=== PATIENT | female | born 1950 | race Caucasian/White ===

== ENCOUNTER 2016-06-28 09:56 | Day surgery (SDC) | payer MEDICARE ==
[~2016-06-28 09:56] MED LIST: Acetaminophen TAB* 325 MG PO PRN; Buffered Lidocaine 1% SYRIN* 3 ML/SYR SYRINGE INTRADERM ONE; Cyclopentolate 1% OPTH.SOL* 2 ML BTL ONE; Flurbiprofen 0.03% OPTH.SOL* 2.5 ML BTL ONE; Lidocaine 1% MPF* 2 ML VIAL ONE; Neomycin/Polymy/Dex OPHTH.OIN* 3.5 GM ONE; Phenylephrine 2.5% OPTH.SOL* 2 ML BTL ONE; Tetracaine 0.5% OPTH.SOL 4 ML* 1 DROP BTL ONE; Tropicamide 1% OPTH.SOL* BTL ONE
[2016-06-28] MEDS ORDERED: fentaNYL* 50 MCG/ML 2 ML VIAL (100 MCG VIAL) ONE (11:07)
[2016-06-28] MEDS ORDERED: Midazolam* 1 MG/ML 2 ML VIAL (2 MG) ONE ×2 (11:08→11:43)
[2016-06-28 12:12] VITALS: BP 147/76
--- NOTE | 2016-06-28 23:30 | OP ---
DATE OF OPERATION: 06/28/16 - [facility] [facility] DATE OF : 46 SURGEON: Jerson Mae MD DOUBLE END TENON OPERATOR: None. ANESTHESIOLOGIST: David Joseph MD ANESTHESIA: Topical with intravenous sedation. PRE-OP DIAGNOSIS: Cataract, right eye with astigmatism. POST-OP DIAGNOSIS: Cataract, right eye with astigmatism. OPERATIVE PROCEDURE: Phacoemulsification and cataract extraction with posterior chamber toric intraocular lens implant, right eye. COMPLICATIONS: None. BLOOD LOSS: None. DESCRIPTION OF PROCEDURE: The patient was seen preoperatively in the holding area, where she was placed in an upright position. A barbara was made at the 6 o' clock position near the limbus of the right eye. The patient was subsequently brought to the operating room, where she was given a small amount of intravenous sedation and a drop of tetracaine in the right eye. The patient was prepped and draped in the usual sterile fashion for ophthalmic surgery and attention was directed to the right eye, where a speculum was placed. A paracentesis was created at the 11 o'clock position and 0.1 cc of 1% preservative-free lidocaine was injected into the anterior chamber followed by DisCoVisc. The eye was digitally stabilized while a 2.75-mm keratome was used to create a triplanar clear corneal incision at the 9 o'clock position. A continuous curvilinear capsulorrhexis was created with a cystotome and Utrata forceps. BSS on a cannula was used to hydrodissect the lens from the capsule. Phacoemulsification was performed in a [id number] technique to create 4 fragments, which were removed. Residual cortical material was removed with irrigation and aspiration. Healon was used to inflate the capsular bag. An [id number] 17 diopter lens was folded. A Funes marker was used to barbara the 79- degree axis on the cornea. The lens was then introduced into the eye through the main wound. A Sinskey hook was used to dial the lens to the appropriate axial alignment. The Sinskey hook remained in the eye with the paracentesis to stabilize the lens while irrigation and aspiration was performed to remove viscoelastic from the eye. The Sinskey hook was removed. BSS on a cannula was used to hydrate the the corneal stroma and seal the wound. At the end of the case, the pupil was round. The lens was centered, stable, and axially aligned. The eye pressure appeared normal and the wound was watertight. The speculum was removed and topical Maxitrol ointment was placed on the surface of the eye. Eye was closed, patched, and shielded and the patient was sent to recovery room in stable condition with postoperative instructions and a followup appointment given. [id number]/CPS #: [id number] MINESH
== END 2016-06-28 12:24 | disposition home or self-care (01) ==
LOC: OREAST 09:56
PROVIDERS: ATTEND Ophthalmology
DX: H25.11 Age-related nuclear cataract, right eye (principal); H52.209 Unspecified astigmatism, unspecified eye; I10 Essential (primary) hypertension; Z87.891 Personal history of nicotine dependence
CPT/HCPCS: J2250; J3010; V2787

== ENCOUNTER 2016-07-05 07:24 | Day surgery (SDC) | payer MEDICARE ==
[~2016-07-05 07:24] MED LIST changes: -Cyclopentolate 1% OPTH.SOL* 2 ML BTL ONE; -Flurbiprofen 0.03% OPTH.SOL* 2.5 ML BTL ONE; -Lidocaine 1% MPF* 2 ML VIAL ONE; -Neomycin/Polymy/Dex OPHTH.OIN* 3.5 GM ONE; -Phenylephrine 2.5% OPTH.SOL* 2 ML BTL ONE; -Tetracaine 0.5% OPTH.SOL 4 ML* 1 DROP BTL ONE; -Tropicamide 1% OPTH.SOL* BTL ONE
[2016-07-05] MEDS ORDERED: Midazolam* 1 MG/ML 2 ML VIAL (2 MG) ONE ×2 (08:43→08:46)
[2016-07-05 09:17] VITALS: BP 157/87
[2016-07-05] MEDS ORDERED: Neomycin/Polymy/Dex OPHTH.OIN* 3.5 GM ONE (13:23)
[2016-07-05] MEDS ORDERED: Phenylephrine 2.5% OPTH.SOL* 2 ML BTL ONE (13:23)
[2016-07-05] MEDS ORDERED: Lidocaine 1% MPF* 2 ML VIAL ONE (13:23)
[2016-07-05] MEDS ORDERED: Flurbiprofen 0.03% OPTH.SOL* 2.5 ML BTL ONE (13:23)
[2016-07-05] MEDS ORDERED: Tropicamide 1% OPTH.SOL* BTL ONE (13:23)
[2016-07-05] MEDS ORDERED: Cyclopentolate 1% OPTH.SOL* 2 ML BTL ONE (13:23)
[2016-07-05] MEDS ORDERED: Tetracaine 0.5% OPTH.SOL 4 ML* 1 DROP BTL ONE (13:23)
--- NOTE | 2016-07-05 21:28 | OP ---
DATE OF OPERATION: 07/05/16 - [place] [facility] DATE OF : 46 SURGEON: Jerson Mae MD DRILL PUNCH OPERATOR: None. ANESTHESIOLOGIST: Caroline Appiah MD ANESTHESIA: Topical with intravenous sedation. PRE-OP DIAGNOSIS: Cataract with astigmatism, left eye. POST-OP DIAGNOSIS: Cataract with astigmatism, left eye. OPERATIVE PROCEDURE: Phacoemulsification and cataract extraction with posterior chamber intraocular toric lens implant, left eye. COMPLICATIONS: None. ESTIMATED BLOOD LOSS: None. DESCRIPTION OF PROCEDURE: The patient was seen preoperatively in the holding area, where she was placed in an upright position. A barbara was made at the 6 o' clock position of the limbus of the left eye. She was subsequently brought to the operating room and given a small amount of intravenous sedation. A drop of tetracaine was placed in the left eye. The patient was prepped and draped in the usual sterile fashion for ophthalmic surgery and attention was directed to the left eye, where a speculum was placed. A paracentesis was created at the 5 o'clock position. 0.1 cc of 1% preservative-free lidocaine was injected into the anterior chamber followed by DisCoVisc. The eye was digitally stabilized while a 2.75-mm keratome was used to create a triplanar clear corneal incision at the 3 o'clock position. A continuous curvilinear capsulorrhexis was created with a cystotome and Utrata forceps. BSS on a cannula was used to hydrodissect the lens from the capsule. Phacoemulsification was performed in a divide-and- conquer technique to create 4 fragments, which were removed. Residual cortical material was removed with irrigation and aspiration. Healon was used to inflate the capsular bag. A Funes marker was used to barbara the 95-degree axis _ ____ limbus. An SN6AT3 18.0 diopter lens was folded and inserted into the capsular bag. A Sinskey hook was used to dial the lens to the appropriate axial alignment, 95 degrees. The Sinskey hook remained in the eye with the paracentesis to stabilize the lens while irrigation and aspiration was performed to remove viscoelastic from the eye. The Sinskey hook was removed. BSS on a cannula was used to hydrate the corneal stroma and to seal the wound. At the end of the case, the pupil was round. The lens was centered, stable, and axially aligned. The eye pressure was normal and wound was watertight. The speculum was removed and topical Maxitrol ointment was placed on the surface of the eye. The eye was closed, patched, and shielded, and the patient was sent to recovery room in stable condition with postop instructions and a followup appointment given. [id number]/CPS #: [id number] MTDD
== END 2016-07-05 09:28 | disposition home or self-care (01) ==
LOC: OREAST 07:24
PROVIDERS: ATTEND Ophthalmology
DX: H25.12 Age-related nuclear cataract, left eye (principal); H52.202 Unspecified astigmatism, left eye; I10 Essential (primary) hypertension; Z87.891 Personal history of nicotine dependence
CPT/HCPCS: A9270-GY; J2250; V2787

== ENCOUNTER 2017-05-16 07:30 | Inpatient (IN) | payer MEDICARE ==
--- NOTE | 2017-05-03 20:59 | HP ---
HISTORY AND PHYSICAL: DATE OF SURGERY/ADMISSION: 05/16/17 DATE OF OFFICE VISIT: 05/03/17 SURGEON: Yahaira Martinez MD * (DICTATED BY NOE VAZQUEZ) PROCEDURE: Right total knee arthroplasty. CHIEF COMPLAINT: Right knee pain. HISTORY OF PRESENT ILLNESS: Ms. Patel is a 67-year-old female with continued complaints of right knee pain secondary to end-stage osteoarthritis. She has failed conservative management and elected to proceed with a right total knee arthroplasty, which is scheduled for 05/16/[address] Martinez. PAST MEDICAL HISTORY: Hypertension, sarcoidosis, history of Lyme disease, and one episode of unexplained rectal bleeding in the requiring 3 units of blood. PAST SURGICAL HISTORY: Cataract removal and lymph node biopsy. CURRENT MEDICATIONS: 1. Amlodipine/benazepril 10/20 mg daily. 2. Fish oil 1000 mg daily. 3. Vitamin D3 2000 units daily. 4. Activella 0.5/0.1 mg daily. 5. Xiidra 5% both eyes daily. 6. Metronidazole 0.75% twice daily. ALLERGIES: PENICILLIN and SULFA. FAMILY HISTORY: Stroke, coronary artery disease, Alzheimer's, AFib, and AML. SOCIAL HISTORY: She is a 67-year-old female. She lives with her . She is a retired rural mail contractor. She is a former smoker. Does not use drugs. Uses occasional alcohol. REVIEW OF SYSTEMS: A complete 14-point review of systems was reviewed with the patient. She denies any history of DVT, PE, hepatitis C, HIV, or anesthesia problems. She has some mild asthma. PHYSICAL EXAMINATION GENERAL: She is well developed, well nourished, in no acute distress. VITAL SIGNS: She stands 5 feet 7 inches tall, weighs 226 pounds. Her blood pressure is 138/88, her heart rate is 88. HEENT: Normocephalic, atraumatic. NECK: Supple. No palpable lymph nodes. PULMONARY: The lungs are clear to auscultation bilaterally. CARDIO: Regular rate and rhythm. Strong S1, S2. ABDOMEN: Soft, nontender, nondistended. MUSCULOSKELETAL: Right lower extremity, the skin is intact. There are no open wounds or abrasions. She has some moderate effusion of the right knee. Some tenderness over the lateral joint line. 5 to 125 degrees of flexion. There is a 15-degree valgus deformity with an incompetent MCL. 2+ dorsalis pedis pulses. Intact sensation in her lower extremity. Muscle group strengths are intact at 5/5. NEUROLOGIC: Alert and oriented x3. Cranial nerves II through XII are intact. ASSESSMENT AND PLAN: Ms. Patel is a 67-year-old female with complaints of right knee pain secondary to end-stage osteoarthritis. She has failed conservative management and elected to proceed with a right total knee arthroplasty, which is scheduled for 05/16/[address] Martinez discussed the risks and benefits of the surgery at today's visit and all of her questions were answered. She will follow up with Dr. Martinez in 2 weeks after the surgery. NOE VAZQUEZ [id number]/CPS #: [id number] MTDD
[~2017-05-16 07:30] MED LIST changes: -Acetaminophen TAB* 325 MG PO PRN; +Buffered Lidocaine 0.9% SYRIN* 5 ML/SYR SYRINGE INTRADERM ONE; -Buffered Lidocaine 1% SYRIN* 3 ML/SYR SYRINGE INTRADERM ONE; +Famotidine IV* 10 MG/ML 2 ML (20 mg) IV ONE
[2017-05-16] MEDS ORDERED: Famotidine IV* 10 MG/ML 2 ML (20 mg) ONE (08:50)
[2017-05-16] MEDS ORDERED: Clindamycin 900 MG IVPREMIX(* 900 MG/50 ML SDV IV ONE (08:50)
[2017-05-16] MEDS ORDERED: Buffered Lidocaine 0.9% SYRIN* 5 ML/SYR SYRINGE ONE (08:50)
[2017-05-16] MEDS ORDERED: Gabapentin CAP(*) 300 MG PO ONE (09:13)
[2017-05-16] MEDS ORDERED: fentaNYL* 50 MCG/ML 2 ML VIAL (100 MCG VIAL) ONE (09:34)
[2017-05-16] MEDS ORDERED: Midazolam* 1 MG/ML 5 ML VIAL (5 MG) ONE (09:35)
[2017-05-16] MEDS ORDERED: Morphine PF AMP (0.5MG/ML)* 5 MG/10 ML AMP ONE (09:35)
[2017-05-16] MEDS ORDERED: Bupivacaine-MPF SPINAL* 7.5 MG/2 ML AMP ONE (09:56)
[2017-05-16] MEDS ORDERED: Dexamethasone IV* 4 MG/ML 1 ML (4 MG) ONE ×2 (10:55→12:21)
[2017-05-16] MEDS ORDERED: Propofol* 10 MG/ML 20 ML BTL IV PUSH ONE ×2 (10:55→12:38)
[2017-05-16] MEDS ORDERED: Ketorolac INJ* 30 MG/ML 1 ML VIAL ONE ×2 (10:55→12:21)
[2017-05-16] MEDS ORDERED: Ondansetron INJ* 2 MG/ML VIAL ONE ×2 (10:55→12:21)
[2017-05-16] MEDS ORDERED: DiMENhydriNATE IV* 50 MG/ML VIAL IV PUSH PRN (11:00)
[2017-05-16] MEDS ORDERED: HYDROmorphone INJ* 1 MG/ML CARPUJECT SYRINGE IV PRN (11:00)
[2017-05-16] MEDS ORDERED: Naloxone* 0.4 MG/ML 1 ML VIAL IV PRN (11:00)
[2017-05-16] MEDS ORDERED: oxyCODONE TAB* 5 MG TAB PO PRN (11:00)
[2017-05-16] MEDS ORDERED: Acetaminophen TAB* 325 MG PO PRN ×2 (11:00→11:16)
[2017-05-16] MEDS ORDERED: Gabapentin CAP(*) 100 MG PO ONE (11:01)
[2017-05-16] MEDS ORDERED: KETAMINE HCL* 50 MG/ML 10 ML VIAL ONE (11:03)
[2017-05-16] MEDS ORDERED: Magnesium Hydroxide LIQ* 30 ML UDC PO PRN (11:16)
[2017-05-16] MEDS ORDERED: Cyclobenzaprine TAB* 10 MG PO PRN (11:16)
[2017-05-16] MEDS ORDERED: Bisacodyl SUPP* 10 MG SUPP PR PRN (11:16)
[2017-05-16] MEDS ORDERED: Polyethylene Glycol 3350* 17 GM PACKET PO PRN (11:16)
[2017-05-16] MEDS ORDERED: Midazolam* 1 MG/ML 2 ML VIAL (2 MG) ONE (11:49)
[2017-05-16] MEDS ORDERED: Labetalol IV* 5 MG/ML 20 ML VIAL ONE (11:58)
[2017-05-16] MEDS ORDERED: Glycopyrrolate IV* 0.2 MG/ML 1 ML VIAL ONE (12:04)
[2017-05-16] MEDS ORDERED: EPHEDrine (Pressors)* 50 MG/ML VIAL IV PUSH PRN (12:25)
[2017-05-16] MEDS ORDERED: Nalbuphine* 20 MG/ML 1 ML VIAL IV PRN (12:25)
[2017-05-16] MEDS ORDERED: Ropivacaine (OR use only) 2 MG/ML 1 ML ONE (12:40)
[2017-05-16] MEDS ORDERED: Ropivacaine* 300 MG in NS 0.9% 250 ML* 240 ML EPIDURAL SCH (13:00)
[2017-05-16] MEDS ORDERED: Gabapentin CAP(*) 100 MG ONE (13:28)
[2017-05-16] MEDS ORDERED: Gabapentin CAP(*) 300 MG ONE (14:12)
--- NOTE | 2017-05-16 15:47 | RAD ---
Indication: Right total knee replacement. 2 views of the right knee demonstrates bipolar knee replacement in satisfactory position. Drainage catheter is in place. IMPRESSION: Right knee replacement in satisfactory position.
[2017-05-16] MEDS ORDERED: Albuterol 2.5 MG/3 ML NEB.SOL* (0.083%) INH PRN (15:51)
[2017-05-16] MEDS ORDERED: Warfarin TAB(*) 6 MG PO ONE (17:00)
[2017-05-16] MEDS: Ibuprofen TAB* 400 MG PO SCH (19:16)
[2017-05-16] MEDS: Clindamycin 600 MG IVPREMIX(* 600 MG/50 ML SDV IV SCH (20:24)
[2017-05-16] MEDS: Docusate CAP* 100 MG PO SCH (20:43)
[2017-05-16] MEDS: Magnesium Hydroxide LIQ* 30 ML UDC PO SCH (20:43)
--- NOTE | 2017-05-16 22:30 | CONS ---
CC: Dr. Lopez; Dr. Martinez* CONSULTATION REPORT: DATE OF CONSULTATION: 05/16/17 PRIMARY CARE PROVIDER: Dr. Lopez. ATTENDING PHYSICIAN WHILE IN THE HOSPITAL: Ruben Grossman MD (report is being dictated by Phill Hansen NP) REASON FOR MEDICAL CONSULTATION: Evaluation and medical management of comorbid medical conditions. HISTORY OF PRESENT ILLNESS: I will refer you to Dr. Martinez's H and P for further details. In short, Mrs. Patel is a 67-year-old female patient who has been dealing with right knee pain for sometime. She says that she tried conservative management; these were failing. She sought care with Dr. Martinez and it was felt that she would benefit from a total knee replacement, which she underwent today. She does carry a history of sarcoidosis in the past, Lyme disease, history of seasonal asthma, and history of hypertension. Because of the medical complexity, we were asked to evaluate in consult. She was evaluated in the PACU. She said she is not having any chest pain, shortness of breath. She does not feel lightheaded or dizzy. She denies having any nausea, vomiting and she states that she otherwise is feeling well. Her pain is well controlled. She has no numbness or tingling to her right lower extremity. Again, because of her medical complexity, we were asked to evaluate in consult. PAST MEDICAL HISTORY: Significant for: 1. Hypertension. 2. Sarcoidosis. 3. Lyme disease. 4. Asthma. PAST SURGICAL HISTORY: 1. She has had lymph node biopsy. 2. Cataract extraction. 3. Today, she has had a right total knee replacement. HOME MEDICATIONS: Include: 1. Lotrel 10/20 mg 1 capsule p.o. daily. 2. Refresh P.M. 1 application topical left eye q.p.m. 3. Fish oil 1000 mg daily. 4. Metronidazole cream 1 application topically in the morning. 5. Xiidra 1 drop both eyes b.i.d. 6. Estradiol/norethindrone 1 tablet in the morning. 7. Vitamin D 1000 units p.o. q.a.m. ALLERGIES TO MEDICATIONS: Include PENICILLIN and SULFA drugs. FAMILY HISTORY: Mother had a history of dementia. Father had a history of CVA and CHF. SOCIAL HISTORY: She does not smoke. She does drink 1 to 2 glasses of wine at dinner. Surrogate decision maker is her , Reinier. REVIEW OF SYSTEMS: There is no documented fever. She denied having any significant weight change. There was no double vision. She denies having any ear discharge. There has been no rhinorrhea. No sore throat. No thyroid enlargement. Denied having any chest pain. There was no orthopnea. There is no nocturnal dyspnea. She denied having any abdominal pain. There is no nausea , no vomiting. No dysuria. No frequency. There was no seizure. No loss of consciousness. No pruritus and no skin ulcerations. Review of 14 systems completed, all others negative. PHYSICAL EXAMINATION: Vital Signs: Blood pressure 109/76, pulse 71, respirations 16, O2 sat 99% on 3 L, temperature 98.2. Generally, at this time, Mrs. Patel is a 67- year-old female patient. She appears to be well nourished, well developed. She does not appear to be in any acute distress. HEENT: Head : Head atraumatic, normocephalic. Eyes: EOMs are intact. Sclerae anicteric and not pale. Neck: Supple. Throat: Oral mucosa appears to be moist. No oropharyngeal erythema. Heart: Sounds S1, S2. Regular rate and rhythm. No murmurs, rubs, or gallops. Lungs: Clear to auscultation. No wheezes, rales, or rhonchi. Abdomen: Soft, it was flat. Bowel sounds hypoactive. Extremities : Pulses were 2+ throughout. Distal CSM checks are intact to the right lower extremity. Neurologically, she is awake, alert, oriented x3. No gross focal deficits. Skin is intact with the exception she has a Hemovac and dressing noticed on the left knee, which is clean, dry, and intact. LABORATORY DATA/DIAGNOSTIC STUDIES: Labs preop, WBC of 8.5, RBC of 4.31, hemoglobin 13.5, hematocrit of 40, platelet count of 291. INR was 0.79. Sodium was 137, potassium was 4.3, chloride 102, bicarb 28, BUN 15, creatinine 0.97, glucose 91. AST 14, ALT 11. Urine preop negative. She did have EKG outpatient, which showed a normal sinus rhythm. No gross ST elevations or T wave inversions, it is difficult to examine because it is photocopied. Chest x- ray showed no active cardiopulmonary disease. Old medical records were reviewed. ASSESSMENT AND PLAN: Mrs. Patel is a 67-year-old female patient coming in to the orthopedic services today for an elective total knee replacement. We were asked to evaluate in consult. Recommendations at this point are: 1. Status post right total knee. I will defer the management to Dr. Martinez and her team. 2. Hypotension. In the setting of her having an epidural, we will hold her meds and restart when able. 3. Sarcoidosis. Follow with her primary. 4. History of Lyme disease. Not an active issue. 5. History of asthma. I will order p.r.n. albuterol for the patient should she have any wheezing. 6. DVT prophylaxis. Defer to the primary team. 7. Code status. Full code. 8. Fluids, electrolytes, and nutrition. I would recommend a heart healthy diet. TIME SPENT: Time spent on consult 60 minutes, greater than half that time was spent [id number] with the patient obtaining my history and physical, the other half time was spent going over the plan of care with the patient, implementing the plan of care. I did discuss the plan of care with my attending, Dr. Grossman, he is in agreement. PHILL HANSEN NP [id number]/CPS #: [id number] MINESH
[2017-05-17] MEDS: Ibuprofen TAB* 400 MG PO SCH ×2 (02:26→07:32)
[2017-05-17] MEDS: Clindamycin 600 MG IVPREMIX(* 600 MG/50 ML SDV IV SCH ×2 (04:24→12:00)
[2017-05-17] MEDS: oxyCODONE/Acetamin 5/325 MG* TAB PO PRN ×3 (05:14→18:08)
[2017-05-17 05:28] LABS: Hematocrit 32 % (35-47); Hemoglobin 10.8 g/dl (12.0-16.0); Mean Platelet Volume 8 um3 (7.4-10.4); Platelet Count 215 10^3/ul (150-450)
[2017-05-17 05:44] LABS: EGFR Non-African American 74.3 (>60)
[2017-05-17] MEDS ORDERED: diPHENhydraMINE IV* 50 MG/ML 1 ml VIAL (BENADRYL) IV PRN (06:00)
[2017-05-17] MEDS ORDERED: Morphine INJ* 2 MG/ML 1 ML CARPUJECT IV PRN (06:00)
[2017-05-17] MEDS ORDERED: oxyCODONE TAB* 5 MG TAB PO PRN (06:00)
[2017-05-17] MEDS ORDERED: Ondansetron TAB* 4 MG PO PRN (06:00)
[2017-05-17] MEDS ORDERED: oxyCODONE/Acetamin 5/325 MG* TAB PO PRN (06:00)
[2017-05-17] MEDS: Magnesium Hydroxide LIQ* 30 ML UDC PO SCH ×2 (08:26→19:55)
[2017-05-17] MEDS: Docusate CAP* 100 MG PO SCH ×2 (08:26→19:55)
[2017-05-17] MEDS ORDERED: amLODIPine/Benazepril 10/20(NF) CAP PO SCH (09:00)
[2017-05-17] MEDS: XIIDRA 5% BOTH EYES SCH ×2 (09:56→19:54)
[2017-05-17] MEDS: EYE BOTH EYES SCH ×2 (09:56→19:54)
[2017-05-17] MEDS: Ondansetron INJ* 2 MG/ML VIAL IV PRN ×2 (10:02→18:09)
--- NOTE | 2017-05-17 11:35 | PN ---
Progress Note - Progress Note Date of Service: 05/17/17 SOAP: Subjective: []Patient seen at bedside. She feels well and denies right knee pain, dizziness , nausea, chest pain or shortness of breath. Objective: [] Vital Signs Temp 98.0 F 05/17/17 07:28 Pulse 66 05/17/17 07:28 Resp 18 05/17/17 08:26 BP 115/56 05/17/17 07:28 Pulse Ox 98 05/17/17 08:00 Intake & Output 05/16/17 05/17/17 05/17/17 18:59 06:59 18:59 Intake Total 1875 2533 225 Output Total 150 1175 Balance 1725 1358 225 Weight 229 lb 6.4 oz Intake: IV Fluids 1700 1033 ABX - CLINDAMYCIN 53 LR 1700 980 Oral 175 1500 225 Output: [place] 150 1175 Other: # Bowel Movements 0 Laboratory Last Values Hgb 10.8 g/dl (12.0-16.0) L 05/17/17 05:11 Hct 32 % (35-47) L 05/17/17 05:11 Plt Count 215 10^3/ul (150-450) 05/17/17 05:11 MPV 8 um3 (7.4-10.4) 05/17/17 05:11 Sodium 130 mmol/L (133-145) L 05/17/17 05:11 Potassium 4.4 mmol/L (3.5-5.0) 05/17/17 07:25 Chloride 101 mmol/L (101-111) 05/17/17 05:11 Carbon Dioxide 24 mmol/L (22-32) 05/17/17 05:11 Anion Gap 5 mmol/L (2-11) 05/17/17 05:11 BUN 14 mg/dL (6-24) 05/17/17 05:11 Creatinine 0.77 mg/dL (0.51-0.95) 05/17/17 05:11 Est GFR ( Amer) 95.6 (>60) 05/17/17 05:11 Est GFR (Non-Af Amer) 74.3 (>60) 05/17/17 05:11 BUN/Creatinine Ratio 18.2 (8-20) 05/17/17 05:11 Glucose 147 mg/dL (70-100) H 05/17/17 05:11 Calcium 8.6 mg/dL (8.6-10.3) 05/17/17 05:11 General: Well appearing, NAD Right LE: Drain removed with tip intact and without complication. Dressing CDI. DF/PF intact. 2+ dp/Pt. Sensation intact distally. BL LE: Calves supple and nontender without erythema, edema or palpable cords Assessment: []POD 1 sp right total knee replacement 05/16/17 Dr Martinez Plan: []PT/OT WBAT Lovenox in house, Aspirin outpatient
[2017-05-17] MEDS: NORETHINDRONE PO SCH (11:59)
[2017-05-17] MEDS: ESTRADIOL 0.5 MG PO SCH (11:59)
[2017-05-17] MEDS: Enoxaparin(*) 30 MG/0.3 ML SYR SUBCUT SCH (12:01)
--- NOTE | 2017-05-17 12:50 | PN ---
Subjective Date of Service: 05/17/17 Interval History: Patient states that her pain is significantly increased after they removed her epidural catheter yesterday. Patient had difficulty working with PT today. Patient denies pain anywhere besides her knee. Patient feels slightly lightheaded on standing but attributes this to the pain. Patient states that she had her millard catheter removed at 0500 and has not urinated yet but does not feel like she needs to. Patient has passed gas but has not had a BM. Patient states that she has a history of prolonged bleeding and a family history of serious bleeding. Patient denies CP, SOB, F/C, abdominal pain, dysuria, or other pain. Family History: Findings - Patient's father had an internal hemorhage. Social History: Unchanged from Admission Past Medical History: Unchanged from Admission Objective Active Medications: Acetaminophen (Tylenol Tab*) 650 mg PO Q4H PRN PRN Reason: PAIN OR TEMPERATURE Albuterol (Ventolin 2.5 Mg/3 Ml Neb.Aniya*) 2.5 mg INH Q2H PRN PRN Reason: SOB/WHEEZING Bisacodyl (Dulcolax Supp*) 10 mg MT DAILY PRN PRN Reason: constipation Cyclobenzaprine HCl (Flexeril Tab*) 10 mg PO TID PRN PRN Reason: SPASMS Diphenhydramine HCl (Benadryl Iv*) 12.5 mg IV Q6H PRN PRN Reason: PRURITIS Docusate Sodium (Colace Cap*) 100 mg PO BID [facility] Last Admin: 05/17/17 08:26 Dose: 100 mg Enoxaparin Sodium (Lovenox(*)) 30 mg SUBCUT Q24H [facility] Last Admin: 05/17/17 12:01 Dose: 30 mg Lactated Ringer's (Lactated Ringers 1000 Ml Bag*) 1,000 mls @ 100 mls/hr IV PER RATE [facility] Last Admin: 05/17/17 02:25 Dose: 100 mls/hr Lactulose (Lactulose*) 30 ml PO Q6H PRN PRN Reason: constipation Magnesium Hydroxide (Milk Of Magnesia Liq*) 30 ml PO BID [facility] Last Admin: 05/17/17 08:26 Dose: 30 ml Magnesium Hydroxide (Milk Of Magnesia Liq*) 30 ml PO Q6H PRN PRN Reason: constipation Morphine Sulfate (Morphine Inj (Syringe)*) 2 mg IV Q2H PRN PRN Reason: PAIN Pto: Estradiol 0.5 Mg-Norethindrone 0.1 Mg Tab 1 dose PO DAILY [facility] Last Admin: 05/17/17 11:59 Dose: 1 dose Xiidra (Lifitegrast) (5% Eye Drops Ud) 1 dose BOTH EYES BID [facility] Last Admin: 05/17/17 09:56 Dose: 1 dose Soothe Lubricant Eye (Ointment) 1 dose LEFT EYE QPM [facility] Ondansetron HCl (Zofran Inj*) 4 mg IV Q6H PRN PRN Reason: nausea Last Admin: 05/17/17 10:02 Dose: 4 mg Ondansetron HCl (Zofran Tab*) 4 mg PO Q6H PRN PRN Reason: NAUSEA Oxycodone HCl (Roxycodone Tab*) 5 mg PO ONCE PRN PRN Reason: PAIN - MODERATE Stop: 05/17/17 17:00 Oxycodone HCl (Roxycodone Tab*) 10 mg PO Q4H PRN PRN Reason: SEVERE PAIN Last Admin: 05/17/17 08:26 Dose: 10 mg Oxycodone/Acetaminophen (Percocet 5/325 Tab*) 2 tab PO Q4H PRN PRN Reason: PAIN Last Admin: 05/17/17 12:32 Dose: 2 tab Oxycodone/Acetaminophen (Percocet 5/325 Tab*) 1 tab PO Q4H PRN PRN Reason: PAIN Polyethylene Glycol/Electrolytes (Miralax*) 17 gm PO DAILY PRN PRN Reason: Constipation Vital Signs - 8 hr 05/17/17 05/17/17 05/17/17 05:14 07:27 07:28 Temperature 98.0 F Pulse Rate 66 Respiratory 20 18 17 Rate Blood Pressure 115/56 (mmHg) O2 Sat by Pulse 98 Oximetry 05/17/17 05/17/17 05/17/17 08:00 08:26 11:57 Temperature Pulse Rate Respiratory 18 18 18 Rate Blood Pressure (mmHg) O2 Sat by Pulse 98 Oximetry 05/17/17 12:32 Temperature Pulse Rate Respiratory 18 Rate Blood Pressure (mmHg) O2 Sat by Pulse Oximetry Oxygen Devices in Use Now: None Appearance: Patient is a 67yo female who appears stated age and is sitting in the bed in NAD. Eyes: No Scleral Icterus, PERRLA Ears/Nose/Mouth/Throat: NL Teeth, Lips, Gums, Clear Oropharnyx, Mucous Membranes Moist Neck: NL Appearance and Movements; NL JVP, Trachea Midline Respiratory: Symmetrical Chest Expansion and Respiratory Effort, Clear to Auscultation Cardiovascular: NL Sounds; No Murmurs; No JVD, RRR, No Edema Abdominal: NL Sounds; No Tenderness; No Distention, No Hepatosplenomegaly Lymphatic: No Cervical Adenopathy Extremities: No Edema, No Clubbing, Cyanosis Skin: No Nodules or Sclerosis, - - Right knee surgical incision covered by bulky dressing and gauze. Drain site non-bleeding but with large amount of blood on gauze. Neurological: Alert and Oriented x 3, NL Sensation, NL Muscle Strength and Tone , - - CN II-XII intact. Result Diagrams: 05/17/17 05:11 05/17/17 07:25 Assess/Plan/Problems-Billing Assessment: Patient is a 67yo female with a PMH for HTN, Asthma, Sarcoidosis, and bleeding who is S/P RTHA and is doing well. - Patient Problems (1) Status post total right knee replacement Current Visit: Yes Status: Acute Code(s): Z96.651 - PRESENCE OF RIGHT ARTIFICIAL KNEE JOINT SNOMED Code(s): 1836445161577 Comment: Patient is POD #1. Patient has had significantly increased pain after the removal of her epidural catheter but this is trending down now. Patient complains of Nausea with opiate administration. Patient has not urinated yet and is passing flatus but has not had a BM. Management per primary team. (2) HTN (hypertension) Current Visit: Yes Status: Acute Code(s): I10 - ESSENTIAL (PRIMARY) HYPERTENSION SNOMED Code(s): 13739205 Comment: Normotensive. Continue to hold BP medications. Will reintroduce as indicated. (3) Sarcoidosis Current Visit: Yes Status: Acute Code(s): D86.9 - SARCOIDOSIS, UNSPECIFIED SNOMED Code(s): 24874818 Comment: Not on medications. No current rash, SOB, fevers, or other signs of disease flare. (4) Bleeding disorder Current Visit: Yes Status: Acute Code(s): D69.9 - HEMORRHAGIC CONDITION, UNSPECIFIED SNOMED Code(s): 70920451 Comment: Patient has a history of difficult to control bleeding. Patient also has a family history of serious bleeding. Never had a hemophilia workup. Will not fully anticoagulate and would recommend hemophilia testing outpatient when further removed from surgery. (5) Asthma Current Visit: Yes Status: Acute Code(s): J45.909 - UNSPECIFIED ASTHMA, UNCOMPLICATED SNOMED Code(s): 646353317 Comment: No exacerbation, on no medications. (6) DVT prophylaxis Current Visit: Yes Status: Acute Code(s): DFB9961 - SNOMED Code(s): 085738823 Comment: Lovenox in the hospital and then ASA. Will not fully anticoagulate due to history of difficult to control bleeding. (7) Full code status Current Visit: Yes Status: Acute Code(s): Z78.9 - OTHER SPECIFIED HEALTH STATUS SNOMED Code(s): 625335210 Status and Disposition: Disposition per ortho.
[2017-05-17] MEDS ORDERED: [UNRECOGNIZED DRUG - OTHER] LEFT EYE SCH (18:00)
[2017-05-17] MEDS: PROCHLORPERAZINE INJ 5 MG/ML 2 ML VIAL IV PRN (23:16)
--- NOTE | 2017-05-17 23:19 | OP ---
DATE OF OPERATION: 05/16/17 - ROOM #348 DATE OF : 46 SURGEON: Yahaira Martinez MD UNEMPLOYMENT INSPECTOR: NOE Arevalo. Ms. Diaz did help throughout the procedure with preparations of the leg, wound retraction, manipulation of the knee and wound closure. ANESTHESIOLOGIST: Dr. Orozco. ANESTHESIA: Spinal. PRE-OP DIAGNOSES: Severe end-stage osteoarthritis of the right knee joint, valgus deformity. POST-OP DIAGNOSES: Severe end-stage osteoarthritis of the right knee joint, valgus deformity. OPERATIVE PROCEDURE: Right total knee arthroplasty. TOURNIQUET TIME: 47 minutes. COMPLICATIONS: None. SPECIMEN: Bone and cartilage from the right knee joint sent to pathology. HARDWARE USED: This is [employer] cemented total knee arthroplasty hardware. Two packages of Simplex bone cement. For the femur, a size 5, right narrow Legion posterior stabilized femoral component. For the tibia, size 3 right, tibial base plate Vanita II. For the insert, a 13-mm constrained articular insert size 3-4 and for the patella, a 32-mm 3-peg all poly patella. BRIEF HISTORY/INDICATION: Ms. Patel is a 67-year-old female with years of increasingly severe right knee pain and valgus deformity. She did injure the knee in the past and had an MCL partial tear. Over the years, she tried anti- inflammatories, pain medications, brace wear and physical therapy without relief of pain. Radiograph showed severe end-stage arthritis with [id number] contact. Due to continued pain and decreased quality of life, the patient elected to undergo right total knee arthroplasty. Informed consent was obtained from the patient. She understood the risk of surgery included, but not limited to bleeding, infection, damage to nearby structures, continued pain , need for further surgery, intraoperative fracture, nerve palsy, hardware failure or loosening, knee stiffness, loss of motion, stroke, heart attack, blood clot and . She wished to proceed. INTRAOPERATIVE FINDINGS: Intraoperatively, the patient was noted to have 15- degree valgus deformity preop, which was corrected to anatomic alignment. She had MCL laxity, but there was some remaining fibers of the MCL. She had lateral femoral condylar hypoplasia noted. There was tricompartmental loss of cartilage. DESCRIPTION OF PROCEDURE: Ms. Patel was identified in the preanesthesia unit. Her right lower extremity was marked as the correct operative side. Informed consent was signed and placed in the chart. The patient was taken to the operating room and placed under spinal anesthesia without difficulty. A De León catheter was placed. Tourniquet was placed on the right thigh. Right lower extremity was prepped and draped in the usual sterile fashion. Preop time-out was made to correctly identify the patient's side and site. Appropriate perioperative antibiotics were given within 1 hour of incision. Tourniquet was inflated and total tourniquet time for this procedure was 47 minutes. A midline incision was made with a 10 blade and carried down to the extensor mechanism. A new 10 blade was used to make a standard medial parapatellar arthrotomy. The patella was subluxed laterally. Electrocautery was used to subperiosteally elevate soft tissue off the medial tibia to the mid sagittal plane. The knee was flexed up. The anterior horn of the lateral meniscus and ACL were released. A drill was used to enter the distal femur. Intramedullary distal femoral cutting guide was pinned on the distal femur. Lateral femoral condylar hypoplasia was noted and accounted for. Oscillating saw was used to make the distal femoral cut. Next, the external rotation guide was turned on the distal femur pinned on the distal femur. The distal femur was sized to size 5. A size 5 multi-cutting jig was pinned on the distal femur. Oscillating saw was used to make the appropriate 4 chamfer cuts. The PCL was completely released. The tibia was subluxed anteriorly. Extramedullary tibial cutting guide was pinned on the proximal tibia. The oscillating saw was used to make the proximal tibial bone cut. The bone was carefully removed. The knee was brought out into full extension. The spacer block had good fit. There was MCL laxity, but medial lateral ligament balancing and spacing was appropriate. Flexion and extension gaps were well balanced. The knee was flexed up. Lamina personnel generalist manager was placed both medially and laterally and any remaining meniscus was removed using electrocautery. Any posterior osteophytes were removed with a curved osteotome. Tibial tray and drop shailesh were placed on the tibia and confirmed satisfactory proximal tibial cut. A size 5 narrow, right femoral component trial was impacted onto the distal femur and had good fit. The box for the posterior stabilized implant was prepared using a reamer and box cut osteotome. A size 3 tibial tray trial with an 11-mm insert trial was placed and the knee was taken through a range of motion. There was full extension to 130 degrees of flexion with good patellofemoral tracking. The patella was everted. 9 mm of patellar bone and cartilage was carefully removed using an oscillating saw. The patella was sized to size 32. The 3 peg holes were drilled through the size 32 guide. A 32 trial patella was placed and the knee was taken through range of motion. There was satisfactory patellofemoral tracking. All trials were carefully removed. The tibia was subluxed anteriorly and sized to a size 3. Proximal tibia was prepared using a size 3 keel punch. All bony cut surfaces were copiously irrigated with sterile saline and dried. Final implants were cemented into place starting with the tibia followed by the femur and last the patella. A 13-mm insert trial was placed and the knee was brought out into full extension. The tourniquet was turned down at 47 minutes. Electrocautery was used to obtain meticulous hemostasis. The knee was copiously irrigated with sterile saline. Once the cement had fully cured, the insert trial was removed. Any excess cement was removed from around the capsule and implant. Final insert chosen was a 13-mm size 3-4 constrained articular insert. This was locked into position on the tibial tray. Stability of the insert was checked and rechecked and noted to be stable. The knee was copiously irrigated once again. Extensor mechanism was closed using interrupted #1 Vicryl over a medium Hemovac drain. The rest of the incisions were closed in layered fashion using 0 and 2-0 Vicryl. The skin was closed using running 3-0 nylon suture. Sterile Xeroform, 4x4s and Webril were used to cover the incision. Guillermo wrap and cold pack were placed over this. The patient's anesthesia was reversed without difficulty. She was taken to the PACU in stable condition. Intended weight-earing will be weightbearing as tolerated. Intended DVT prophylaxis will be Lovenox, home on aspirin. [id number]/[facility] #: [id number] [facility]
[2017-05-18 05:46] LABS: Hematocrit 34 % (35-47); Hemoglobin 11.4 g/dl (12.0-16.0); Mean Platelet Volume 9 um3 (7.4-10.4); Platelet Count 241 10^3/ul (150-450)
[2017-05-18] MEDS: PROCHLORPERAZINE INJ 5 MG/ML 2 ML VIAL IV PRN (08:11)
[2017-05-18] MEDS: Magnesium Hydroxide LIQ* 30 ML UDC PO SCH (08:30)
[2017-05-18] MEDS: Docusate CAP* 100 MG PO SCH (08:30)
[2017-05-18] MEDS: NORETHINDRONE PO SCH (09:38)
[2017-05-18] MEDS: ESTRADIOL 0.5 MG PO SCH (09:38)
[2017-05-18] MEDS: XIIDRA 5% BOTH EYES SCH (09:39)
[2017-05-18] MEDS: EYE BOTH EYES SCH (09:39)
[2017-05-18] MEDS ORDERED: amLODIPine TAB* 5 MG PO SCH (11:00)
--- NOTE | 2017-05-18 11:15 | PN ---
Subjective Date of Service: 05/18/17 Interval History: Patient was significantly nauseated overnight which responded to compazine. Patient had several bowel movements and urinated. Patient had 2 episodes of hematuria but states that that is decreasing in amount and only occurred after her catheterization overnight for urinary retention which is now also resolved. Patient states that she has minor pain in her leg at rest but that it increases up to a 9/10 with activity but that she was still able to participate in PT and walk up stairs. Patient denies lightheadedness on standing today, which was present yesterday. Patient denies F/C, N/V, abdominal pain, CP, SOB, or other pain. Family History: Findings - Patient's father had an internal hemorhage. Social History: Unchanged from Admission Past Medical History: Unchanged from Admission Objective Active Medications: Acetaminophen (Tylenol Tab*) 650 mg PO Q4H PRN PRN Reason: PAIN OR TEMPERATURE Last Admin: 05/18/17 08:29 Dose: 650 mg Albuterol (Ventolin 2.5 Mg/3 Ml Neb.Aniya*) 2.5 mg INH Q2H PRN PRN Reason: SOB/WHEEZING Amlodipine Besylate (Norvasc Tab*) 10 mg PO DAILY EMELIA Bisacodyl (Dulcolax Supp*) 10 mg VA DAILY PRN PRN Reason: constipation Cyclobenzaprine HCl (Flexeril Tab*) 10 mg PO TID PRN PRN Reason: SPASMS Diphenhydramine HCl (Benadryl Iv*) 12.5 mg IV Q6H PRN PRN Reason: PRURITIS Docusate Sodium (Colace Cap*) 100 mg PO BID [facility] Last Admin: 05/18/17 08:30 Dose: Not Given Enoxaparin Sodium (Lovenox(*)) 30 mg SUBCUT Q24H [facility] Last Admin: 05/17/17 12:01 Dose: 30 mg Lactated Ringer's (Lactated Ringers 1000 Ml Bag*) 1,000 mls @ 100 mls/hr IV PER RATE [facility] Last Admin: 05/18/17 02:15 Dose: 100 mls/hr Lactulose (Lactulose*) 30 ml PO Q6H PRN PRN Reason: constipation Magnesium Hydroxide (Milk Of Magnesia Liq*) 30 ml PO BID [facility] Last Admin: 05/18/17 08:30 Dose: Not Given Magnesium Hydroxide (Milk Of Magnesia Liq*) 30 ml PO Q6H PRN PRN Reason: constipation Morphine Sulfate (Morphine Inj (Syringe)*) 2 mg IV Q2H PRN PRN Reason: PAIN Pto: Estradiol 0.5 Mg-Norethindrone 0.1 Mg Tab 1 dose PO DAILY [facility] Last Admin: 05/18/17 09:38 Dose: 1 dose Xiidra (Lifitegrast) (5% Eye Drops Ud) 1 dose BOTH EYES BID [facility] Last Admin: 05/18/17 09:39 Dose: 1 dose Soothe Lubricant Eye (Ointment) 1 dose LEFT EYE QPM [facility] Last Admin: 05/17/17 19:53 Dose: 1 dose Ondansetron HCl (Zofran Inj*) 4 mg IV Q6H PRN PRN Reason: nausea Last Admin: 05/17/17 18:09 Dose: 4 mg Ondansetron HCl (Zofran Tab*) 4 mg PO Q6H PRN PRN Reason: NAUSEA Last Admin: 05/17/17 22:10 Dose: 4 mg Oxycodone HCl (Roxycodone Tab*) 10 mg PO Q4H PRN PRN Reason: SEVERE PAIN Last Admin: 05/17/17 08:26 Dose: 10 mg Oxycodone/Acetaminophen (Percocet 5/325 Tab*) 2 tab PO Q4H PRN PRN Reason: PAIN Last Admin: 05/17/17 18:08 Dose: 2 tab Oxycodone/Acetaminophen (Percocet 5/325 Tab*) 1 tab PO Q4H PRN PRN Reason: PAIN Last Admin: 05/18/17 08:29 Dose: 1 tab Polyethylene Glycol/Electrolytes (Miralax*) 17 gm PO DAILY PRN PRN Reason: Constipation Prochlorperazine Edisylate (Compazine Inj*) 10 mg IV Q6H PRN PRN Reason: NAUSEA Last Admin: 05/18/17 08:11 Dose: 10 mg Vital Signs - 8 hr 05/18/17 05/18/17 05/18/17 04:13 07:39 08:00 Temperature 98.9 F 98.9 F Pulse Rate 77 79 Respiratory 16 16 18 Rate Blood Pressure 159/70 143/91 (mmHg) O2 Sat by Pulse 98 93 93 Oximetry 05/18/17 08:29 Temperature Pulse Rate Respiratory 18 Rate Blood Pressure (mmHg) O2 Sat by Pulse Oximetry Oxygen Devices in Use Now: None Appearance: Patient is a 67yo female who appears stated age and is sitting in the bed in NAD. Eyes: No Scleral Icterus, PERRLA Ears/Nose/Mouth/Throat: NL Teeth, Lips, Gums, Clear Oropharnyx, Mucous Membranes Moist Neck: NL Appearance and Movements; NL JVP, Trachea Midline Respiratory: Symmetrical Chest Expansion and Respiratory Effort, Clear to Auscultation Cardiovascular: NL Sounds; No Murmurs; No JVD, RRR, - - 1+ edema in RLE. Abdominal: NL Sounds; No Tenderness; No Distention Lymphatic: No Cervical Adenopathy Extremities: No Clubbing, Cyanosis Skin: No Nodules or Sclerosis, - - Right knee covered with bulky dressing. Neurological: Alert and Oriented x 3, NL Sensation, NL Muscle Strength and Tone , - - CN II-XII intact. Result Diagrams: 05/18/17 04:49 05/18/17 04:49 Assess/Plan/Problems-Billing Assessment: Patient is a 67yo female with a PMH for HTN, Asthma, Sarcoidosis, and bleeding who is S/P RTHA and is doing well. - Patient Problems (1) Status post total right knee replacement Current Visit: Yes Status: Acute Code(s): Z96.651 - PRESENCE OF RIGHT ARTIFICIAL KNEE JOINT SNOMED Code(s): 7904850932577 Comment: Patient is POD #2. Patient has decreased pain today which is tolerable. Patient complains of Nausea with opiate administration which resolved with compazine overnight. Patient is now urinating and having bowel movements independantly. Management per primary team. (2) HTN (hypertension) Current Visit: Yes Status: Acute Code(s): I10 - ESSENTIAL (PRIMARY) HYPERTENSION SNOMED Code(s): 44672193 Comment: Slightly hypertensive. Amlodopine restarted. Resume home medications on discharge. (3) Sarcoidosis Current Visit: Yes Status: Acute Code(s): D86.9 - SARCOIDOSIS, UNSPECIFIED SNOMED Code(s): 38731883 Comment: Not on medications. No current rash, SOB, fevers, or other signs of disease flare. (4) Bleeding disorder Current Visit: Yes Status: Acute Code(s): D69.9 - HEMORRHAGIC CONDITION, UNSPECIFIED SNOMED Code(s): 21285803 Comment: Patient has a history of difficult to control bleeding. Patient also has a family history of serious bleeding. Never had a hemophilia workup. Will not fully anticoagulate and would recommend hemophilia testing outpatient when further removed from surgery. Likely contributing to hematuria with slight trauma. (5) Asthma Current Visit: Yes Status: Acute Code(s): J45.909 - UNSPECIFIED ASTHMA, UNCOMPLICATED SNOMED Code(s): 856601927 Comment: No exacerbation, on no medications. (6) DVT prophylaxis Current Visit: Yes Status: Acute Code(s): FER0343 - SNOMED Code(s): 596032333 Comment: Lovenox in the hospital and then ASA. Will not fully anticoagulate due to history of difficult to control bleeding. (7) Full code status Current Visit: Yes Status: Acute Code(s): Z78.9 - OTHER SPECIFIED HEALTH STATUS SNOMED Code(s): 673652825 Status and Disposition: Inpatient, Disposition per ortho.
[2017-05-18] MEDS: Enoxaparin(*) 30 MG/0.3 ML SYR SUBCUT SCH (11:25)
--- NOTE | 2017-05-18 12:16 | PN ---
Progress Note - Progress Note Date of Service: 05/18/17 SOAP: Subjective: []Patient seen at bedside. She feels well and desires discharge home. Denies dizziness, nausea, CP or SOB. Objective: []General: Well appearing, NAD Right LE: Dressing changed, incision CDI. DF/PF intact. 2+ dp/Pt. Sensation intact distally. BL LE: Calves supple and nontender without erythema, edema or palpable cords Vital Signs Temp 98.9 F 05/18/17 11:30 Pulse 76 05/18/17 11:30 Resp 16 05/18/17 11:30 BP 169/50 05/18/17 11:30 Pulse Ox 94 05/18/17 11:30 Intake & Output 05/17/17 05/18/17 05/18/17 18:59 06:59 18:59 Intake Total 2962 1403 714 Output Total 125 4400 900 Balance 2837 -2997 -186 Intake: IV Fluids 1087 983 714 ABX - CLINDAMYCIN 107 LR 980 983 714 Oral 1875 420 Output: Urine 125 2975 900 Straight Cath 400 Emesis 1025 Other: Date of Last Bowel 05/18/17 Movement # Bowel Movements 1 Estimated Stool Amount Small Laboratory Last Values Hgb 11.4 g/dl (12.0-16.0) L 05/18/17 04:49 Hct 34 % (35-47) L 05/18/17 04:49 Plt Count 241 10^3/ul (150-450) 05/18/17 04:49 MPV 9 um3 (7.4-10.4) 05/18/17 04:49 Sodium 132 mmol/L (133-145) L 05/18/17 04:49 Potassium 4.4 mmol/L (3.5-5.0) 05/17/17 07:25 Chloride 101 mmol/L (101-111) 05/17/17 05:11 Carbon Dioxide 24 mmol/L (22-32) 05/17/17 05:11 Anion Gap 5 mmol/L (2-11) 05/17/17 05:11 BUN 14 mg/dL (6-24) 05/17/17 05:11 Creatinine 0.77 mg/dL (0.51-0.95) 05/17/17 05:11 Est GFR ( Amer) 95.6 (>60) 05/17/17 05:11 Est GFR (Non-Af Amer) 74.3 (>60) 05/17/17 05:11 BUN/Creatinine Ratio 18.2 (8-20) 05/17/17 05:11 Glucose 147 mg/dL (70-100) H 05/17/17 05:11 Calcium 8.6 mg/dL (8.6-10.3) 05/17/17 05:11 Assessment: []POD 2 sp right total knee replacement 05/16/17 Dr Martinez Plan: []PT/OT WBAT Lovenox in house, Aspirin outpatient DC Home
[2017-05-18] MEDS: oxyCODONE/Acetamin 5/325 MG* TAB PO PRN (14:17)
[2017-05-18 15:08] VITALS: BP 144/70
--- NOTE | 2017-05-19 23:30 | DS ---
DISCHARGE SUMMARY: DATE OF ADMISSION: 05/16/17 DATE OF DISCHARGE: 05/18/17 PROVIDER: Dr. Yahaira Martinez.* (DICTATED BY NOE WEST) BLANKET WASHER: NOE Arevalo PRE-OP DIAGNOSIS: Severe end-stage osteoarthritis of the right knee with valgus deformity. OPERATIVE PROCEDURE: Right total knee arthroplasty. HISTORY: Ms. Patel is a 67-year-old female, who has had years of increasingly severe right knee pain and valgus deformity. She did injure the knee in the past and had an MCL partial tear. Over the years, she tried anti-inflammatories , pain medications, brace wear, and physical therapy without pain relief. Radiographs showed severe end-stage arthritis with [id number]-cw-[id number] contact. She elected to undergo a right total knee arthroplasty. HOSPITAL COURSE: The patient was admitted to [facility] on 05/16/17. On the same day, she underwent a right total knee arthroplasty without complications. She recovered briefly in the PACU and then was transferred to the short-stay surgical unit again in stable condition. She was seen by our hospital service, Physical Therapy, and Occupational Therapy during her stay. Postop day 1, the patient was well appearing, in no acute distress. Drain was removed with tip intact and without complication. Dressing was clean, dry, intact. Dorsiflexion and plantarflexion intact. dorsalis pedis and posterior tibial pulse. Sensation intact distally. Hemoglobin 10.8 and hematocrit 32. The patient's De León catheter was removed the morning of . Due to inability to urinate throughout the day, she did require straight cath. By postop day 2, urinary retention had resolved. The patient did have some hematuria, which was resolving after straight cath. Her dressing was changed. Incision was clean, dry, and intact. Temperature 98.9, pulse 76, respiratory rate 16, blood pressure 169/50, pulse ox 94%. Hemoglobin 11.4, hematocrit 34. The patient was deemed to be medically and orthopedically stable for discharge home. MEDICATIONS: Resume home medications. New medications: 1. Docusate 100 mg p.o. b.i.d. p.r.n. 2. Percocet 5/325 one to 2 tabs every 4 to 6 hours as needed for pain, max daily dose of 10. 3. Aspirin 325 mg 1 tab every 12 hours for DVT prophylaxis. DISCHARGE PLAN: The patient will be weightbearing as tolerated. She may shower after her third postoperative day, do not submerge the wound. Percocet 5 /325 one to two tabs every 4 to 6 hours as needed for pain, max daily dose of 10 , aspirin 325 one tab every 12 hours for DVT prophylaxis. Follow up with Dr. Martinez in 10 to 14 days. NOE WEST [id number]/[facility] #: [id number] MIN[facility]
== END 2017-05-18 14:55 | disposition home health service (06) | DRG 470 ==
LOC: AA 08:37 → SSU 11:17
PROVIDERS: ADMIT Orthopaedic Surgery Adult Reconstructive Orthopaedic Surgery; ATTEND Orthopaedic Surgery Adult Reconstructive Orthopaedic Surgery
PROC: 0SRC0J9 Replacement of Right Knee Joint with Synthetic Substitute, Cemented, Open Approach (ICD-10-PCS; principal; 2017-05-16 11:00)
DX: M17.11 Unilateral primary osteoarthritis, right knee (principal); I95.2 Hypotension due to drugs; D86.9 Sarcoidosis, unspecified; I10 Essential (primary) hypertension; J45.909 Unspecified asthma, uncomplicated; Z96.641 Presence of right artificial hip joint; G43.909 Migraine, unspecified, not intractable, without status migrainosus; M21.061 Valgus deformity, not elsewhere classified, right knee; Z79.82 Long term (current) use of aspirin; Z88.0 Allergy status to penicillin; Z88.2 Allergy status to sulfonamides; Z82.49 Family history of ischemic heart disease and other diseases of the circulatory system; Z82.3 Family history of stroke; Z81.8 Family history of other mental and behavioral disorders; Z87.891 Personal history of nicotine dependence; Z72.89 Other problems related to lifestyle; Z98.42 Cataract extraction status, left eye; Z98.41 Cataract extraction status, right eye; R11.0 Nausea; T40.605A Adverse effect of unspecified narcotics, initial encounter; Y92.239 Unspecified place in hospital as the place of occurrence of the external cause; R33.9 Retention of urine, unspecified; R79.1 Abnormal coagulation profile; R31.9 Hematuria, unspecified
CPT/HCPCS: 36415; 80048; 84300; 85014; 85018; 85049; 88305; 88311; 94760; A9270-GY; C1776; G8978-GP-CJ; G8979-GP-CI; G8987-GO-CJ; G8988-GO-CI; J0780; J1100; J1650; J1885; J2250; J2405; J2704; J2795; J3010